=== PATIENT | male | born 1975 | race Caucasian/White ===

== ENCOUNTER 2019-04-01 11:33 | Emergency (ER) | payer MEDICAID, OTHER ==
[~2019-04-01] VITALS: Ht 190.5 cm; Wt 121.0 kg
[2019-04-01] MEDS ORDERED: MORP15TA PO (13:14)
[2019-04-01] MEDS ORDERED: morphine ER 15mg tablet PO ONE (13:15)
[2019-04-01 14:23] VITALS: BP 132/68
== END 2019-04-01 14:10 | disposition home or self-care (01) ==
LOC: ER 11:34
DX: C41.9 Malignant neoplasm of bone and articular cartilage, unspecified (principal); Z76.0 Encounter for issue of repeat prescription
CPT/HCPCS: 99283